=== PATIENT | male | born 1975 | race Caucasian/White ===

== ENCOUNTER 2017-05-20 15:38 | Emergency (ER) | payer BC, OTHER, SELFPAY ==
[2017-05-20] MEDS ORDERED: MORPHINE SULFATE 10 MG/ML IM ONE (15:57)
[2017-05-20] MEDS ORDERED: ZOFRAN ODT 4 MG PO ONE (15:57)
[2017-05-20] MEDS ORDERED: BACIGUENT PACKET TP ONE (15:58)
[2017-05-20] MEDS ORDERED: Marcaine 0.5% SDV 10 ML IJ ONE (15:58)
[2017-05-20] MEDS ORDERED: Adacel Vial IM ONE ×2 (15:58→16:04)
[2017-05-20] MEDS ORDERED: Marcaine 0.5% SDV 10 ML ONE (16:03)
--- NOTE | 2017-05-20 16:03 | ERPHSYRPT ---
- History of Present Illness Time Seen by Provider: 05/20/17 15:50 Source: patient, family () Patient Subjective Stated Complaint: pt here for laceration to left 2,3,4 digit. hand got caught in tail gate of truck Triage Nursing Assessment: pt alert, walked in , resp easy, left hand bandaged with small amt of bleeding noted Physician History: CC: smashed left hand Hx: 42 y/o patient smashed left hand while carrying a truck bed. He scraped the fingers and has some cuts. Unsure last tetanus. No meds or allergies. Pain moderate. HE has been working outside and hands are dirty. Occurred: just prior to arrival Quality: constant Extremities Pain Location: hand: left Allergies/Adverse Reactions: No Known Drug Allergies Allergy (Verified 05/20/17 15:48) Hx Tetanus, Diphtheria Vaccination/Date Given: No Hx Influenza Vaccination/Date Given: No Hx Pneumococcal Vaccination/Date Given: No Immunizations Up to Date: Yes - Review of Systems Constitutional: No Symptoms Abdominal/Gastrointestinal: No Nausea, No Vomiting Musculoskeletal: Joint Pain (left hand), No Back Pain, No Neck Pain Neurological: No Focal Weakness, No Headache All Other Systems: Reviewed and Negative - Past Medical History Pertinent Past Medical History: No - Past Surgical History Past Surgical History: No - Social History Smoking Status: Current every day smoker How long have you smoked: 25 Exposure to second hand smoke: Yes Drug Use: none Patient Lives Alone: No - Nursing Vital Signs Nursing Vital Signs: Initial Vital Signs Temperature 98.4 F 05/20/17 15:44 Pulse Rate 57 L 05/20/17 15:44 Respiratory Rate 16 05/20/17 15:44 Blood Pressure 123/85 05/20/17 15:44 O2 Sat by Pulse Oximetry 99 05/20/17 15:44 Pain Scale Pain Intensity 0 - Physical Exam General Appearance: alert Eyes, Ears, Nose, Throat Exam: moist mucous membranes Neck Exam: supple Cardiovascular/Respiratory Exam: regular rate/rhythm Neuro/Tendon Exam: normal sensation, normal motor functions Mental Status Exam: alert, oriented x 3, cooperative Skin Exam: warm, dry SpO2 Interpretation: normal SpO2: 99 Oxygen Delivery: Room Air Comments: Hands are covered with dirt from working. ROM intact. Pain with motion. Flexor skin has flap lacerations and abrasions. Procedures - Laceration/Wound Repair left hand Wound Location: Left, hand Wound Explored: no tendon or deep structure involvement (hands in general) Irrigated: Yes (copious water at sink) Hibiclens Prep: Yes Anesthesia: local, digital block, 1% Lidocaine (2ml), marcaine 0.5 Wound Debrided: minimal Wound Repaired With: sutures Progress: 05/20/17 18:04 Left hand index finger palmar 3 cm avulsion of skin at DIP. No flap for repair. Offered referral for skin graft or secondary intention. He chose attempt to pull skin together. He understands risk of scar, nonunion, stiffness, infection. Wound closed with 3-0 prolene #3 simple interupted as best possible. Fair reapproximation. Left long finger 5cm flap palmar surface DIP area. Closed with #10 simple interupted. [place] bed. Reapproximated well. Will dress and splint. Follow up advised. Discussed wound care. - Course Nursing assessment & vital signs reviewed: Yes - Radiology Exams left hand X-ray Interpretation: Interpreted by me, No Fracture Ordered Tests: Active Orders 24 hr Category Date Time Status Prepare for Sutures STAT Care 05/20/17 15:58 Active Sutures STAT Care 05/20/17 15:58 Active Wound Care STAT Care 05/20/17 15:58 Active HAND (MINIMUM 3 VIEWS) Stat Exams 05/20/17 15:57 Completed Medication Summary Discontinued Medications Generic Name Dose Route Start Last Admin Trade Name Freq PRN Reason Stop Dose Admin Bacitracin 0.9 gm 05/20/17 15:58 05/20/17 16:06 Baciguent Packet TP 05/20/17 15:59 1 gm STAT ONE Administration Bacitracin Confirm 05/20/17 16:04 Baciguent Packet Administered 05/20/17 16:05 Dose 1 gm .ROUTE .STK-MED ONE Bupivacaine HCl 5 ml 05/20/17 15:58 05/20/17 16:06 Marcaine 0.5% Sdv 10 Ml IJ 05/20/17 15:59 10 ml STAT ONE Administration Bupivacaine HCl Confirm 05/20/17 16:03 Marcaine 0.5% Sdv 10 Ml Administered 05/20/17 16:04 Dose 10 ml .ROUTE .STK-MED ONE Diphtheria/Tetanus/Acell Pertussis 0.5 ml 05/20/17 15:58 05/20/17 16:05 Adacel Vial IM 05/20/17 15:59 0.5 ml .ONCE ONE Administration Diphtheria/Tetanus/Acell Pertussis Confirm 05/20/17 16:04 Adacel Vial Administered 05/20/17 16:05 Dose 0.5 ml IM .STK-MED ONE Morphine Sulfate 10 mg 05/20/17 15:57 05/20/17 16:05 Morphine Sulfate 10 Mg/Ml IM 05/20/17 15:58 10 mg STAT ONE Administration Morphine Sulfate Confirm 05/20/17 16:04 Morphine Sulfate 10 Mg/Ml Administered 05/20/17 16:05 Dose 10 mg .ROUTE .STK-MED ONE Ondansetron HCl 4 mg 05/20/17 15:57 05/20/17 16:05 Zofran Odt 4 Mg PO 05/20/17 15:58 4 mg STAT ONE Administration Ondansetron HCl Confirm 05/20/17 16:04 Zofran Odt 4 Mg Administered 05/20/17 16:05 Dose 4 mg .ROUTE .STK-MED ONE - Progress Counseled pt/family regarding: diagnosis, need for follow-up - Departure Time of Disposition: 18:06 Departure Disposition: Home Clinical Impression: Laceration of left hand Condition: Stable Critical Care Time: No Referrals: DOCTOR,NO FAMILY [Primary Care Provider] - Instructions: Laceration Repair With Stitches (DC), Wound Care (DC) Additional Instructions: LACERATION CARE 1. Do not use peroxide, merthiolate, alcohol, or betadine. 2. Keep wound clean and dry. 3. Change dressing if it becomes wet or soiled. 4. If you must work, wear protective covering. 5. You may return to the emergency department or see your family physician for suture removal. 6. See your family physician or return to the emergency department for any of the following signs or symptoms: A. Redness B. Swelling C. Discolored drainage D. Red streaks E. Elevated temperature F. Other signs of infection Rx keflex. Keep wound clean and dry. Follow up for wound check in 2 days. Suture removal in 14 days. Report any sign of infection right away. Prescriptions: Cephalexin Mh 500 mg [Keflex 500 mg] 1 cap PO QID #20 capsule
[2017-05-20] MEDS ORDERED: BACIGUENT PACKET ONE ×2 (16:04→18:06)
[2017-05-20] MEDS ORDERED: ZOFRAN ODT 4 MG ONE (16:04)
[2017-05-20] MEDS ORDERED: MORPHINE SULFATE 10 MG/ML ONE (16:04)
--- NOTE | 2017-05-20 17:09 | XRAY ---
Indication: Laceration/injury. Comparison: None 3 views of the left hand demonstrates distal 4th finger soft tissue swelling/laceration. No other bony, articular, or soft tissue abnormalities.
[2017-05-20] MEDS ORDERED: KEFLEX 500 MG PO ONE (18:09)
[2017-05-20] MEDS ORDERED: KEFLEX 500 MG ONE (18:17)
[2017-05-20 18:52] VITALS: BP 105/73; PULSE 56; O2SAT 95
== END 2017-05-20 18:25 | disposition home or self-care (01) ==
LOC: ED 15:38
PROC: 0HQGXZZ Repair Left Hand Skin, External Approach (ICD-10-PCS; principal; 2017-05-20)
DX: S61.412A Laceration without foreign body of left hand, initial encounter (principal); W23.1XXA Caught, crushed, jammed, or pinched between stationary objects, initial encounter
CPT/HCPCS: 12002; 73130; 90471; 90715; 96372; 99283; 99284; J2270; Q0162; A9270-GY

== ENCOUNTER 2025-01-17 13:13 | Emergency (ER) | payer OTHER ==
[2025-01-17] MEDS ORDERED: EMLA Cream 5 GM TP ONE (13:20)
[2025-01-17] MEDS: EMLA Cream 5 GM TP ONE (13:23)
[2025-01-17 13:35] VITALS: BP 121/79; PULSE 48; RESP 18; TEMP 97.5; O2SAT 96
--- NOTE | 2025-01-17 13:39 | ERPHSYRPT ---
- History of Present Illness Time Seen by Provider: 01/17/25 13:20 Source: patient Exam Limitations: no limitations Physician History: 49-year-old male presents to the emergency room with lacerations after a grinding wheel exploded while he was cutting metal patient reports he had a laceration to his right thumb left forearm and left leg denies any other injuries now in ED for further eval reports his tetanus is up-to-date Occurred: just prior to arrival Method of Injury: incised Quality: constant Severity of Pain-Max: mild Severity of Pain-Current: mild Extremities Pain Location: forearm: left, hand: right Modifying Factors: Improves With: nothing Associated Symptoms: none Allergies/Adverse Reactions: No Known Drug Allergies Allergy (Verified 05/20/17 15:48) Home Medications: No Reportable Medications [No Reported Medications] 01/17/25 [History] Hx Tetanus, Diphtheria Vaccination/Date Given: No Hx Influenza Vaccination/Date Given: No Hx Pneumococcal Vaccination/Date Given: No - Review of Systems Constitutional: No Fever, No Chills Eyes: No Symptoms Ears, Nose, & Throat: No Symptoms Respiratory: No Cough, No Dyspnea Cardiac: No Chest Pain, No Edema, No Syncope Abdominal/Gastrointestinal: No Abdominal Pain, No Nausea, No Vomiting, No Diarrhea Genitourinary Symptoms: No Dysuria Musculoskeletal: Other (lacerations), No Back Pain, No Neck Pain Skin: No Rash Neurological: No Dizziness, No Focal Weakness, No Sensory Changes Psychological: No Symptoms Endocrine: No Symptoms All Other Systems: Reviewed and Negative - Past Medical History Pertinent Past Medical History: No - Past Surgical History Past Surgical History: No - Social History Smoking Status: Current every day smoker How long have you smoked: 25 Exposure to second hand smoke: Yes Drug Use: none Patient Lives Alone: No - Nursing Vital Signs Nursing Vital Signs: Initial Vital Signs Temperature 97.5 F 01/17/25 13:13 Pulse Rate 48 L 01/17/25 13:13 Respiratory Rate 18 01/17/25 13:13 Blood Pressure 121/79 01/17/25 13:13 O2 Sat by Pulse Oximetry 96 01/17/25 13:13 Pain Scale Pain Intensity 10 - Physical Exam General Appearance: alert Eyes, Ears, Nose, Throat Exam: moist mucous membranes Neck Exam: non-tender, supple Cardiovascular/Respiratory Exam: chest non-tender, normal breath sounds, regular rate/rhythm, no respiratory distress Abdominal Exam: non-tender, No guarding Back Exam: normal inspection, No vertebral tenderness Hand Exam: laceration (right thumb, 4 cms, left forearm superficial, multiple, left leg laceration - superficial 3 cm) Neuro/Tendon Exam: normal sensation, normal motor functions Mental Status Exam: alert, oriented x 3, cooperative Skin Exam: normal color, warm, dry SpO2: 96 Procedures - Laceration/Wound Repair Right Upper Anterior Dorsal Finger Time of Procedure: 14:24 Wound Location: Right, hand Wound Length (cm): 3 Wound's Depth, Shape: linear Wound Explored: clean Irrigated: Yes Anesthesia: local, digital block, 1% Lidocaine Volume Anesthetic (ccs): 5 Wound Debrided: minimal Wound Repaired With: sutures Suture Size/Type: 5-0, ethilon Layer Closure?: No Number Deep Layer Sutures: 3 Sterile Dressing Applied?: Yes Splint Applied?: No Sling Applied?: No Progress: 01/17/25 14:25 well - Course Nursing assessment & vital signs reviewed: Yes Ordered Tests: Active Orders 24 hr Category Date Time Status Wound Care STAT Care 01/17/25 13:20 Active Medication Summary Discontinued Medications Generic Name Dose Route Start Last Admin Trade Name Freq PRN Reason Stop Dose Admin Lidocaine/Prilocaine 2.5 gm 01/17/25 13:20 01/17/25 13:23 Lidocaine/Prilocaine 5 Gm 5 Gm Tube TP 01/17/25 13:21 2.5 gm STAT ONE Administration Lidocaine/Prilocaine Confirm 01/17/25 13:20 Lidocaine/Prilocaine 5 Gm 5 Gm Tube Administered 01/17/25 13:21 Dose 5 gm TP .STK-MED ONE - Departure Departure Disposition: Home Clinical Impression: Lacerations of multiple sites of left arm Qualifiers: Encounter type: initial encounter Qualified Code(s): S41.112A - Laceration without foreign body of left upper arm, initial encounter Laceration of right thumb Qualifiers: Encounter type: initial encounter Damage to nail status: unspecified Foreign body presence: unspecified Qualified Code(s): S61.011A - Laceration without foreign body of right thumb without damage to nail, initial encounter Leg laceration Qualifiers: Encounter type: initial encounter Laterality: left Qualified Code(s): S81.812A - Laceration without foreign body, left lower leg, initial encounter Condition: Stable Critical Care Time: No Referrals: DOCTOR,NO FAMILY [NON-STAFF PHY W/O PRIVILEGES, UNKNOWN] - Follow up/PCP as directed Instructions: Wound care - ED discharge instructions, Skin glue for minor cuts, Stitches - ED discharge instructions
== END 2025-01-17 14:35 | disposition home or self-care (01) ==
LOC: ED 13:13
DX: S41.112A Laceration without foreign body of left upper arm, initial encounter (principal); S61.011A Laceration without foreign body of right thumb without damage to nail, initial encounter; S81.812A Laceration without foreign body, left lower leg, initial encounter; W20.8XXA Other cause of strike by thrown, projected or falling object, initial encounter; Z72.0 Tobacco use